=== PATIENT | female | born 1975 | race Caucasian/White ===

== ENCOUNTER 2023-09-28 01:51 | Emergency (ER) | payer OTHER, SELFPAY ==
[2023-09-28 01:58] VITALS: BP 121/77
[2023-09-28 02:45] VITALS: BMI 31.0
[2023-09-28 02:55] VITALS: BP 114/75
[2023-09-28 03:00] VITALS: BP 104/71
[2023-09-28 03:02] LABS: % Basophils 0.3 % (0-2); % Eosinophils 2.1 % (0-6); % Immature Granulocytes 0.5 % (0-0.5); % Lymphocytes 16.4 % (20.5-51.1); % Monocytes 6.9 % (1.7-9.3); % Neutrophils 73.8 % (42.2-75.2); Absolute Eosinophils 0.3 10^3/uL (0-0.7); Absolute Immature Granulocytes 0.1 10^3/uL (0-0.05); Absolute Monocytes 0.8 10^3/uL (0.1-0.6); Hematocrit 37.1 % (37.0-47.0); Hemoglobin 13.1 g/dL (12.0-16.0); Mean Corp Hgb Conc. 35.3 g/dL (33.0-37.0); Mean Corpuscular Hgb 30.4 pg (27.0-31.0); Mean Corpuscular Volume 86.1 fL (81.0-99.0); Mean Platelet Volume 9.4 fL (7.4-10.4); Nucleated Red Blood Cells % 0 %; Platelet Count 286 10^3/uL (130-400); Red Blood Cell Count 4.31 10^6/uL (4.20-5.40); Red Cell Dist. Width 12.5 % (11.5-14.5); White Blood Cell Count 12.2 10^3/uL (4.8-10.8)
[2023-09-28 03:16] LABS: ALT (SGPT) 15 U/L (0-35); AST (SGOT) 26 U/L (14-36); Albumin 4.3 g/dl (3.5-5.0); Alkaline Phosphatase 126 U/L (38-126); Blood Urea Nitrogen 19 mg/dl (7-17); Calcium 9.7 mg/dl (8.4-10.2); Carbon Dioxide 26 mmol/L (22-30); Chloride 103 mmol/L (98-107); Estimated Creatinine Clearance 89 ml/min; Glucose 114 mg/dl (70-99); Lipase 146 U/L (23-300); Potassium 4.7 mmol/L (3.5-5.1); Sodium 135 mmol/L (135-145); Total Bilirubin 0.8 mg/dl (0.2-1.3); Total Protein 7.4 g/dl (6.3-8.2); eGFR > 60.00
[2023-09-28 03:28] LABS: Troponin I < 0.012 ng/ml
--- NOTE | 2023-09-28 03:53 | ED.GENMED ---
History of Present Illness
General
Chief Complaint: Chest Pain
Source: patient
Exam Limitations: none
Time Seen by Provider: 09/28/23 02:50
Nursing documentation reviewed up to this point in time: agreed with
Travel History
Have you had any contact with someone who has COVID-19?: No
Do you have any symptoms of coronavirus? Fever > 100 degrees, chills, cough, shortness of breath, sore throat, loss of taste or smell, muscle aches, or headache?: No
History of Present Illness
History of Present Illness:
This is a 48-year-old woman who has history of SVT maintained on beta-maricruz who complains of epigastric pain that began tonight while lying in bed. Epigastric pain waxes and wanes, moderate in nature radiating to her lower substernal chest as
well as radiating to her back. She states epigastric pain and chest pain feels similar to 'heartburn' but admits that she rarely suffers with heartburn. She denies coughing or shortness of breath, denies nausea nor vomiting, denies dizziness nor
lightheadedness, denies diaphoresis. She has not taken anything for discomfort.
Symptoms have improved but have not completely resolved.
Patient ate scallops for dinner.
Epigastric and chest pain began while lying supine but did not wake her from sleep.
She denies risk of , last menstrual period normal and on time 3 and half weeks ago.
Other than beta-maricruz her only other daily medication is sertraline.
Past History
Past History
ED Past Medical History: Arrthythmia ( SVT) and Psychiatric; Negative HTN or Hypercholesterolemia
ED Past Surgical History: None
Social History
Tobacco: Non-smoker
Alcohol: Occasional
Drug: None
Personal:
Living: with family
Employment: Employed
Family History
Family History: Hypertension
Phy Exam
Physical Exam
Physical Exam:
GENERAL: 48-year-old woman appears her stated age, bright and alert, pleasant, appears in no acute distress.
EYE: anicteric
NECK: Supple, nontender, no meningismus, no significant adenopathy.
ENT: oral mucosa is moist. No rhinorrhea.
CARDIAC: Regular rate and rhythm. no murmur.
LUNGS: Clear breath sounds bilaterally, no acute respiratory distress, no wheezes/rales/rhonchi
ABDOMEN: Soft, nondistended, mild tenderness epigastric region, no r/g, no cvat. normoactive BS.
NEUROLOGICAL: Alert and oriented x3, no focal neuro deficits.
SKIN: Warm and dry, normal color, skin intact. No rash.
MUSCULOSKELETAL: No C/C/E. peripheral pulses are full and equal b/l. No palpable tenderness.
PSYCH: Normal and appropriate interaction.
Scores
Heart Score for Chest Pain Patients
STEMI patient?: No
History: Slightly or Non-Suspicious
ECG: Normal
Age: >45 - <65 years
Risk Factors: No Risk Factors
Troponin: </= Normal Limit
Heart Score for Chest Pain Patients: 1
Heart Score Risk: 2.5% MACE over next 6 weeks
Course
Orders/Labs/Results
Orders:
Orders
09/28/23 01:51
Electrocardiogram (*1) Urgent
Reason for Study: Chest Pain
EKG- Treatment ONCE
09/28/23 02:53
Complete Blood Count/With Diff Urgent
Comprehensive Metabolic Panel Urgent
Lipase Urgent
Troponin I Urgent
09/28/23 03:35
US Abdomen Complete/Upper Urgent
Comment:
Reason For Exam: acute upper abd pain
09/28/23 04:48
Pantoprazole [Protonix IV] 40 mg IV NOW STA
09/28/23 04:50
Mag Hydrox/Al Hydrox/Simeth [Maalox] 30 ml Phenobarb/Hyoscy/Atropine/Scop [] 10 ml Viscous Lidocaine 2% [Xylocaine Viscous Cup] 10 ml PO NOW
09/28/23 04:52
Mag Hydrox/Al Hydrox/Simeth [Maalox] 30 ml .ROUTE .STK-MED ONE
Phenobarb/Hyoscy/Atropine/Scop [] 10 ml .ROUTE .STK-MED ONE
09/28/23 04:53
Viscous Lidocaine 2% [Xylocaine Viscous Cup] 15 ml .ROUTE .STK-MED ONE
Abnormal Lab Results
09/28/23
02:53
WBC 12.2 H 10^3/uL
(4.8-10.8)
Abs Immat Gran (auto) 0.1 H 10^3/uL
(0-0.05)
Absolute Neuts (auto) 9.0 H 10^3/uL
(1.4-6.5)
Absolute Monos (auto) 0.8 H 10^3/uL
(0.1-0.6)
Lymphocytes % 16.4 L %
(20.5-51.1)
BUN 19 H mg/dl
(7-17)
Glucose 114 H mg/dl
(70-99)
09/28/23 02:53
09/28/23 02:53
Vital Signs
Initial and Last Documented VS:
Initial Vital Signs
Temp Pulse Resp BP Pulse Ox
98.5 F 71 16 121/77 100
09/28/23 01:58 09/28/23 01:58 09/28/23 01:58 09/28/23 01:58 09/28/23 01:58
Last Documented Vital Signs
Temp Pulse Resp BP Pulse Ox
98.5 F 67 16 104/71 100
09/28/23 01:58 09/28/23 03:45 09/28/23 01:58 09/28/23 03:00 09/28/23 01:58
MDM/Problems Addressed
Differential Diagnosis Includes:
Concern for acute gastritis/GERD, other consideration is acute pancreatitis, biliary colic/cholecystitis. ACS is less likely.
Patient has no risk factors for aortic dissection nor PE.
Overall appears comfortable. Exam remarkable for mild to moderate epigastric tenderness to palpation.
EKG shows normal sinus rhythm, normal axis, normal intervals, flipped T waves in 3 and V3 otherwise unremarkable. Similar flipped T waves noted on prior EKG August 2021 save her heart rate has improved from 140 to now 70.
Will check labs including LFTs, lipase, troponin.
Will plan for abdominal ultrasound to assess for cholelithiasis.
*Pulse Oximetry
Patient hypoxic: no
*EKG
Interpreted by ED Provider?: Yes
Comparison EKG: changes noted (Heart rate has decreased from 140 to now 70 compared to previous EKG August 2021)
Rate: normal
Rhythm: sinus
Lutcher: normal axis
Interval: normal interval
QRS Pattern: normal QRS
Ischemia: T-wave inversion (Mild T wave inversion in lead III and V3.)
*Seamless Tube Mill Operator Interpretation
Rate: normal
Interpretation: normal
Rhythm: sinus
*Critical Care Note
Total Time (30-74mins, 75-104mins- exclusive of procedures): Not Applicable
Update Note
Update Note:
09/28/2023 0451 AM
Labs are unremarkable save for minimally elevated white blood cell count of 12.2.
Troponin is negative. Chemistry/LFTs are unremarkable.
Abdominal ultrasound is unremarkable.
Overall patient appears comfortable, she continues with very mild intermittent lower substernal chest discomfort, epigastric discomfort that I suspect is gastritis/GERD in nature and thus we will trial a GI cocktail and IV Protonix.
09/28/2023 0532 AM
Patient feeling improved after GI cocktail. Eager to be discharged to home.
Recommend she start once daily [id number] Prilosec 20 mg for at least the next 5 to 7 days.
Avoid heavy meals, avoid spicy, fried foods, caffeinated beverages, alcoholic beverages.
Prompt follow-up with primary care physician for recheck.
Return precautions discussed.
ED Attending Note
-
Portions of this chart may have been created with voice recognition software.� Occasional wrong word or��sound alike� substitutions may have occurred due to the inherent limitations of voice recognition software.
Discharge Plan
Departure
Patient Disposition: Home (Routine Discharge)
Date of Disposition: 09/28/23
Time of Disposition: 05:30
Patient with high blood pressure during this ER visit?: No
Condition: Good
Discharge Problem:
Acute acid reflux
Instructions: Acid Reflux and GERD in Adults (DC)
Prescriptions:
No Action
albuterol sulfate 18 GM HFA aerosol inhaler
8.5 gm inhalation Q4HPRN PRN (Reason: cough/sob)
fluticasone propionate [Flovent HFA] 1 PUFF HFA aerosol inhaler
2 puff inhalation R BID
Patient Comments:
Patient unsure of dose.
lactobacillus bifidus [[id number]] 1 CAP capsule
1 cap PO DAILY Qty: 30 0RF
pantoprazole 40 MG tablet,delayed release (DR/EC)
40 mg PO DAILY Qty: 15 0RF
ondansetron HCl 4 MG tablet
4 mg PO [id number] PRN (Reason: before antibiotics if nausea) Qty: 28 0RF
amoxicillin-pot clavulanate 1 TABLET tablet
1 tab PO Q12 Qty: 28 0RF
Referrals:
NONE,* [Active] - Call in 1-3 days for appt
Interventions
Interventions:
*Risk Screen - Suicide Last Done: 09/28/23 01:58
*General Assessment Last Done: 09/28/23 01:58
*Neglect/Abuse Screening Last Done: 09/28/23 01:58
ED- Fall Risk Assessment Last Done: 09/28/23 02:45
ED- Cardiac Assessment Last Done: 09/28/23 02:45
[2023-09-28] MEDS: MAALOX 50 PO (04:54)
[2023-09-28] MEDS: PROTONIX IV 40 MG IV (05:01)
== END 2023-09-28 05:45 | disposition home or self-care (01) ==
LOC: EMR 01:51
PROVIDERS: EMERGENCY PHYSICIAN Emergency Medicine; FAMILY PHYSICIAN Family Medicine
DX: K21.9 Gastro-esophageal reflux disease without esophagitis (principal)
CPT/HCPCS: 99285; 96374; 76700; 80053; 83690; 84484; 85025; 93005

== ENCOUNTER 2023-12-26 01:10 | Emergency (ER) | payer OTHER, SELFPAY ==
[2023-12-26 01:10] VITALS: BMI 31.3
[2023-12-26 01:13] VITALS: BP 112/74
--- NOTE | 2023-12-26 02:20 | ED.GENMED ---
History of Present Illness
<ONEIL Townsend - Last Filed: 12/26/23 06:31>
General
Chief Complaint: Eye Problems
Source: patient
Exam Limitations: none
Time Seen by Provider: 12/26/23 01:56
Travel History
Have you had any contact with someone who has COVID-19?: No
Do you have any symptoms of coronavirus? Fever > 100 degrees, chills, cough, shortness of breath, sore throat, loss of taste or smell, muscle aches, or headache?: No
History of Present Illness
History of Present Illness:
This is a 48 YO F with a PMH of anxiety, depression, and sinus tachycardia presenting here today for left eye discomfort/swelling x 3 days. Pt reports slight pain in the upper eyelid for the past three days and complains of a foreign body sensation.
Pt complains of blurry vision superiorly in the left eye and in her left visual field. She states this has never happened before. Denies burning, flashes, and floaters. Hx of ocular surgery b/l in 2018, not cataract surgery, but similar. Pt has used
rewetting drops today with some relief.
Denies smoking, alcohol, and drug use.
Past History
<ONEIL Townsend - Last Filed: 12/26/23 06:31>
Past History
ED Past Medical History: Arrthythmia ( SVT) and Psychiatric; Negative HTN or Hypercholesterolemia
ED Past Surgical History: None
Social History
Tobacco: Non-smoker
Alcohol: Occasional
Drug: None
Personal:
Living: with family
Employment: Employed
Family History
Family History: Hypertension
Review of Systems
<ONEIL Townsend - Last Filed: 12/26/23 06:31>
Review of Systems
Constitutional: Reports no symptoms
Respiratory: Reports no symptoms
Cardiac: Reports no symptoms
ABD/GI: Reports no symptoms
: Reports no symptoms
Musculoskeletal: Reports no symptoms
Skin: Reports no symptoms
Neurological: Reports no symptoms
Endocrine: Reports no symptoms
Hematologic/Lymphatic: Reports no symptoms
Psychiatric: Reports depression and anxiety
Phy Exam
<ONEIL Townsend - Last Filed: 12/26/23 06:31>
Physical Exam
Physical Exam:
Visible left eye swelling, (-) corneal abrasion seen after staining
Course
<Dominique Joyner [facility] - Last Filed: 12/26/23 06:31>
Orders/Labs/Results
Orders:
Orders
12/26/23 02:33
CT Orbits With Iv Contrast Urgent
Comment:
Reason For Exam: left eye swelling
12/26/23 02:34
Test Result ONCE
12/26/23 02:54
Complete Blood Count/With Diff Urgent
Comprehensive Metabolic Panel Urgent
HCG, Serum Qualitative Screen Urgent
12/26/23 06:20
Erythromycin (Ilotycin) [Erythromycin 0.5% Ophthalmic Ointment] See Dose Instructions OPHTH NOW STA
Abnormal Lab Results
12/26/23
02:54
WBC 12.4 H 10^3/uL
(4.8-10.8)
MCH 31.8 H pg
(27.0-31.0)
Absolute Neuts (auto) 9.2 H 10^3/uL
(1.4-6.5)
Absolute Monos (auto) 0.8 H 10^3/uL
(0.1-0.6)
Lymphocytes % 17.1 L %
(20.5-51.1)
BUN 23 H mg/dl
(7-17)
Glucose 110 H mg/dl
(70-99)
Alkaline Phosphatase 170 H U/L
(38-126)
12/26/23 02:54
12/26/23 02:54
Vital Signs
Initial and Last Documented VS:
Initial Vital Signs
Temp Pulse Resp BP Pulse Ox
98.6 F 69 18 112/74 98
12/26/23 01:13 12/26/23 01:13 12/26/23 01:13 12/26/23 01:13 12/26/23 01:13
Last Documented Vital Signs
Temp Pulse Resp BP Pulse Ox
98.6 F 69 18 112/74 98
12/26/23 01:13 12/26/23 01:13 12/26/23 01:13 12/26/23 01:13 12/26/23 01:13
<Rafa Huddleston, DO - Last Filed: 12/26/23 05:32>
Orders/Labs/Results
Orders:
Orders
12/26/23 02:33
CT Orbits With Iv Contrast Urgent
Comment:
Reason For Exam: left eye swelling
12/26/23 02:34
Test Result ONCE
12/26/23 02:54
Complete Blood Count/With Diff Urgent
Comprehensive Metabolic Panel Urgent
HCG, Serum Qualitative Screen Urgent
12/26/23 06:20
Erythromycin (Ilotycin) [Erythromycin 0.5% Ophthalmic Ointment] See Dose Instructions OPHTH NOW STA
Abnormal Lab Results
12/26/23
02:54
WBC 12.4 H 10^3/uL
(4.8-10.8)
MCH 31.8 H pg
(27.0-31.0)
Absolute Neuts (auto) 9.2 H 10^3/uL
(1.4-6.5)
Absolute Monos (auto) 0.8 H 10^3/uL
(0.1-0.6)
Lymphocytes % 17.1 L %
(20.5-51.1)
BUN 23 H mg/dl
(7-17)
Glucose 110 H mg/dl
(70-99)
Alkaline Phosphatase 170 H U/L
(38-126)
12/26/23 02:54
12/26/23 02:54
Vital Signs
Initial and Last Documented VS:
Initial Vital Signs
Temp Pulse Resp BP Pulse Ox
98.6 F 69 18 112/74 98
12/26/23 01:13 12/26/23 01:13 12/26/23 01:13 12/26/23 01:13 12/26/23 01:13
Last Documented Vital Signs
Temp Pulse Resp BP Pulse Ox
98.6 F 69 18 112/74 98
12/26/23 01:13 12/26/23 01:13 12/26/23 01:13 12/26/23 01:13 12/26/23 01:13
<ONEIL Townsend - Last Filed: 12/26/23 06:31>
MDM/Problems Addressed
Differential Diagnosis Includes:
Blepharitis, orbital cellulitis, corneal abrasion, corneal ulcer
MDM/Problems Addressed:
Left eye discomfort x 3 days
<ONEIL Townsend - Last Filed: 12/26/23 06:31>
*Critical Care Note
Total Time (30-74mins, 75-104mins- exclusive of procedures): Not Applicable
<Rafa Huddleston DO - Last Filed: 12/26/23 05:32>
Update Note
Update Note:
CT orbits with IV contrast
IMPRESSION:
No abscess or orbital cellulitis. Close are intact. Paranasal sinuses and mastoid air cells clear.
Finalized at 5:03 AM EST
ED Attending Note
<ONEIL Townsedn - Last Filed: 12/26/23 06:31>
-
Portions of this chart may have been created with voice recognition software.� Occasional wrong word or��sound alike� substitutions may have occurred due to the inherent limitations of voice recognition software.
<Rafa Huddleston DO - Last Filed: 12/26/23 05:32>
ED Attending Note
Patient seen and examined by attending physician: Yes
I performed the substantive portion of visit, reviewed & personally made and approve the management plan that is documented in note by myself or GARRETT.: Yes
ED Attending Note:
Pleasant 48-year-old female presents with left eye discomfort that is been present for the last 3 days. She states that she has had increased pain and swollen eyelids. She feels that something is in her upper eyelid. Denies fever, chills, nausea
or vomiting. Patient was seen in conjunction with the PA student. I have reviewed and agree with the history and treatment plan presented. On my independent physical exam, patient is awake, alert, and oriented x3. Eyelid everted. No foreign
body. Fluorescein dye showed no evidence of corneal abrasion. There are some swelling to the left upper eyelid. Plan is to CT scan of the orbits.
Discharge Plan
Departure
Patient Disposition: Home (Routine Discharge)
Date of Disposition: 12/26/23
Time of Disposition: 05:30
Patient with high blood pressure during this ER visit?: No
Condition: Good
Discharge Problem:
Acute left eye pain, Pain and swelling of eyelid of left eye
Instructions: Blepharitis
Prescriptions:
New
erythromycin 5 mg/gram (0.5 %) ointment
1 applic ophthalmic (eye) Q8H PRN (Reason: eye pain, swekking) Qty: 50 0RF
No Action
albuterol sulfate 18 GM HFA aerosol inhaler
8.5 gm inhalation Q4HPRN PRN (Reason: cough/sob)
fluticasone propionate [Flovent HFA] 1 PUFF HFA aerosol inhaler
2 puff inhalation R BID
Patient Comments:
Patient unsure of dose.
lactobacillus bifidus [[id number]] 1 CAP capsule
1 cap PO DAILY Qty: 30 0RF
pantoprazole 40 MG tablet,delayed release (DR/EC)
40 mg PO DAILY Qty: 15 0RF
ondansetron HCl 4 MG tablet
4 mg PO [id number] PRN (Reason: before antibiotics if nausea) Qty: 28 0RF
amoxicillin-pot clavulanate 1 TABLET tablet
1 tab PO Q12 Qty: 28 0RF
Referrals:
Theo Jensen Jr., DO [Family Provider] -
Randy Navarrete MD [Active] - Next open appointment
Activity Restrictions/Additional Instructions:
It was a pleasure meeting you and taking part in your care. We hope for your continued healing and wellness.
Please read discharge instructions in their entirety. However, they are for general education and may not describe your exact diagnosis at discharge. Information on your ER visit and medical conditions were discussed with you along with appropriate
follow up information...
If indicated, please take your medications as instructed and indicated on discharge paperwork.
Please schedule a follow up appointment as directed. Call to schedule an appointment
Please return to the emergency department with ANY change in, persisting, or worsening of symptoms. If any of your symptoms do not improve, or persist, or become more severe within 6-12 hours, please return to the emergency department for further
care.
Please return to the emergency department if you develop a headache, neck pain/stiffness, fever greater than 100.4F, chest pain, shortness of breath, persistent nausea, vomiting, slurred speech, difficulty walking, numbness/tingling, weakness, signs
of infection or any other symptoms that are worrisome to you.
If you have any questions or concerns please do not hesitate to call the Hospital at or E-mail me directly at [email or web address]
Interventions
Interventions:
*Risk Screen - Suicide Last Done: 12/26/23 01:13
*General Assessment Last Done: 12/26/23 01:13
*Neglect/Abuse Screening Last Done: 12/26/23 01:13
ED- Fall Risk Assessment Last Done: 12/26/23 01:13
*ED COVID-19 Vaccine History Last Done: 12/26/23 01:13
Discharge Date and Time
Print Language: KOSOVAN
[2023-12-26 03:13] LABS: % Basophils 0.4 % (0-2); % Eosinophils 1.8 % (0-6); % Immature Granulocytes 0.2 % (0-0.5); % Lymphocytes 17.1 % (20.5-51.1); % Monocytes 6.6 % (1.7-9.3); % Neutrophils 73.9 % (42.2-75.2); Absolute Basophils 0.1 10^3/uL (0-0.2); Absolute Eosinophils 0.2 10^3/uL (0-0.7); Absolute Lymphocytes 2.1 10^3/uL (1.2-3.4); Absolute Monocytes 0.8 10^3/uL (0.1-0.6); Absolute Neutrophils 9.2 10^3/uL (1.4-6.5); Hematocrit 41.1 % (37.0-47.0); Hemoglobin 14.3 g/dL (12.0-16.0); Mean Corp Hgb Conc. 34.8 g/dL (33.0-37.0); Mean Corpuscular Hgb 31.8 pg (27.0-31.0); Mean Corpuscular Volume 91.5 fL (81.0-99.0); Mean Platelet Volume 10.2 fL (7.4-10.4); Nucleated Red Blood Cells % 0 %; Platelet Count 296 10^3/uL (130-400); Red Blood Cell Count 4.49 10^6/uL (4.20-5.40); Red Cell Dist. Width 12.3 % (11.5-14.5); White Blood Cell Count 12.4 10^3/uL (4.8-10.8)
[2023-12-26 03:48] LABS: HCG, Serum Qualitative Screen Negative
[2023-12-26 03:56] LABS: ALT (SGPT) 13 U/L (0-35); AST (SGOT) 22 U/L (14-36); Albumin 4.6 g/dl (3.5-5.0); Alkaline Phosphatase 170 U/L (38-126); Blood Urea Nitrogen 23 mg/dl (7-17); Calcium 9.9 mg/dl (8.4-10.2); Carbon Dioxide 26 mmol/L (22-30); Chloride 101 mmol/L (98-107); Estimated Creatinine Clearance 63 ml/min; Glucose 110 mg/dl (70-99); Sodium 139 mmol/L (135-145); Total Bilirubin 0.7 mg/dl (0.2-1.3); Total Protein 7.6 g/dl (6.3-8.2); eGFR > 60.00
== END 2023-12-26 06:42 | disposition home or self-care (01) ==
LOC: EMR 01:10
PROVIDERS: EMERGENCY PHYSICIAN Student in an Organized Health Care Education/Training Program; FAMILY PHYSICIAN Family Medicine
DX: H57.12 Ocular pain, left eye (principal); H02.844 Edema of left upper eyelid
CPT/HCPCS: 99285; 70481; 80053; 84703; 85025; Q9967

== ENCOUNTER → 2024-01-12 14:03 | Outpatient (REF) | payer OTHER, SELFPAY | LOC: RCS 14:03 | PROVIDERS: ATTENDING PHYSICIAN Internal Medicine Cardiovascular Disease; FAMILY PHYSICIAN Family Medicine | DX: R07.2 Precordial pain (principal); I47.11 Inappropriate sinus tachycardia, so stated; R06.09 Other forms of dyspnea | CPT/HCPCS: 93306 ==

== ENCOUNTER 2024-03-15 16:35 | Emergency (ER) | payer OTHER, SELFPAY ==
[2024-03-15 16:39] VITALS: BP 123/92
--- NOTE | 2024-03-15 16:44 | ED.PDOC.TRB ---
ED Provider Triage
-
Patient seen by provider in Triage?: Seen in Triage
49 year old female with midabdominal pain and vomiting yesterday. Had blood in vomit yesterday. This started after eating shrimp. NO vomiting since yesterday. No bloody stools. No thinners or alcohol use. Labs ordered. Sent back to [facility].
[2024-03-15 17:21] LABS: % Basophils 0.5 % (0-2); % Eosinophils 1.9 % (0-6); % Immature Granulocytes 0.4 % (0-0.5); % Lymphocytes 24.8 % (20.5-51.1); % Monocytes 6.8 % (1.7-9.3); % Neutrophils 65.6 % (42.2-75.2); Absolute Eosinophils 0.2 10^3/uL (0-0.7); Absolute Lymphocytes 2.1 10^3/uL (1.2-3.4); Absolute Monocytes 0.6 10^3/uL (0.1-0.6); Absolute Neutrophils 5.4 10^3/uL (1.4-6.5); Hematocrit 38.2 % (37.0-47.0); Hemoglobin 13.5 g/dL (12.0-16.0); Mean Corp Hgb Conc. 35.3 g/dL (33.0-37.0); Mean Corpuscular Hgb 30.4 pg (27.0-31.0); Mean Platelet Volume 10.3 fL (7.4-10.4); Nucleated Red Blood Cells % 0 %; Platelet Count 299 10^3/uL (130-400); Red Blood Cell Count 4.44 10^6/uL (4.20-5.40); Red Cell Dist. Width 11.9 % (11.5-14.5); White Blood Cell Count 8.3 10^3/uL (4.8-10.8)
[2024-03-15 17:45] LABS: Blood Urea Nitrogen 14 mg/dl (7-17); Calcium 9.5 mg/dl (8.4-10.2); Carbon Dioxide 20 mmol/L (22-30); Chloride 106 mmol/L (98-107); Glucose 82 mg/dl (70-99); Lipase 79 U/L (23-300); Sodium 135 mmol/L (135-145); eGFR > 60.00
--- NOTE | 2024-03-15 18:06 | ED.GENMED ---
History of Present Illness
General
Chief Complaint: Abdominal Symptoms
Source: patient
Exam Limitations: none
Time Seen by Provider: 03/15/24 18:04
Nursing documentation reviewed up to this point in time: agreed with
History of Present Illness
History of Present Illness:
Patient is a 49 yr old female presents to the ER for evaluation. Patient reports yesterday she had 3 episodes at 1 time vomiting blood. 2 episodes were dark red blood and she had additional episode of light red blood/ mixed with dark red blood.
She had some abdominal fullness. She was in [place] at the time and did not want to go to the hospital there. Today she had intermittent nausea but has not vomited and has had small amount to eat and drink. Denies any dark or black stools.
Denies any lightheaded dizziness weakness. Denies any abdominal pain presently.
She does admit that she started Zepbound by a weight loss/list 3 weeks ago.
She only is a social alcohol drinker. She does not have a diagnosed reflux.
Past History
Past History
ED Past Medical History: Arrthythmia ( SVT) and Psychiatric; Negative HTN or Hypercholesterolemia
ED Past Surgical History: None
Social History
Tobacco: Non-smoker
Alcohol: Occasional
Drug: None
Personal:
Living: with family
Employment: Employed
Family History
Family History: Hypertension
Review of Systems
Review of Systems
Allergies reviewed?: Yes
All Other Systems: ROS reviewed and negative except as documented in HPI and ROS
Constitutional: Reports no symptoms; Denies fever, fatigue or chills
Respiratory: Reports no symptoms
Cardiac: Reports no symptoms
ABD/GI: Reports nausea, vomiting and other (vomited blood yesterday denies today no vomiting ; denies pain had mild fullness yesterday ); Denies bloody stools or black stools
: Reports no symptoms
Musculoskeletal: Reports no symptoms; Denies back pain
Skin: Reports no symptoms
Neurological: Reports no symptoms
Psychiatric: Reports no symptoms
Phy Exam
General Physical Exam
General Presentation: well appearing
General age: appears stated age
General Skin: warm and dry
General Habitus: normal
General Mental: alert
General Hydration: appears well hydrated
Cardiovascular Exam
Cardiovascular Exam: regular rate/rhythm, no murmur and normal peripheral pulses
Pulmonary Exam
Pulmonary Exam: lungs clear and no respiratory distress
Gastrointestinal Exam
Gastrointestinal Exam: normal bowel sounds, non tender and soft
Neurological Exam
Neurological Exam: alert and oriented x3
[place] Coma Scale
Eye Opening: Spontaneous
Verbal Response: Oriented
Motor Response: Obeys Commands
GCS Total Score: 15
Musculoskeletal Exam
Musculoskeletal Exam: full ROM
Skin Exam
Skin Exam: normal color and warm/dry
Psychiatric Exam
Psychiatric Exam: normal mood/affect
Course
Orders/Labs/Results
Orders:
Orders
03/15/24 17:12
Complete Blood Count/With Diff Urgent
03/15/24 17:13
Basic Metabolic Panel Urgent
Lipase Urgent
03/15/24 19:56
LFT [Uiaiy-Dayj-Yhchvgy] Urgent
03/15/24 20:04
Famotidine [Pepcid] 20 mg IV NOW STA
Abnormal Lab Results
03/15/24 03/15/24
17:13 19:56
Carbon Dioxide 20 L mmol/L
(22-30)
Total Bilirubin 1.4 H mg/dl
(0.2-1.3)
03/15/24 17:12
03/15/24 17:13
Vital Signs
Initial and Last Documented VS:
Initial Vital Signs
Temp Pulse Resp BP Pulse Ox
98.3 F 94 20 123/92 99
03/15/24 16:39 03/15/24 16:39 03/15/24 16:39 03/15/24 16:39 03/15/24 16:39
Last Documented Vital Signs
Temp Pulse Resp BP Pulse Ox
98.3 F 94 20 123/92 99
03/15/24 16:39 03/15/24 16:39 03/15/24 16:39 03/15/24 16:39 03/15/24 16:39
Diamond Sander consulted with Physician
Diamond Sander consulted with physician?: Yes
Name of Physician Consulted: Dr Eli
MDM/Problems Addressed
Differential Diagnosis Includes:
Not limited to ulcer, gastritis, anemia
MDM/Problems Addressed:
Patient is a 49-year-old female who presented to the ER after vomiting blood yesterday. Patient reports she had 3 separate episodes of vomiting at 1 time and reported dark blood 2 times and scattered dark mixed with pink-tinged blood the third
time. She felt a little upper abdominal fullness denies any vomiting today minimally nauseous. On exam she presents well-appearing in no acute distress abdomen soft nontender. Her hemoglobin is stable at 13.5 her lipase is normal her LFTs
evaluated bilirubin minimally elevated 1.4 all other LFTs normal she recently started Zepbound 3 weeks ago. She is no acute distress and looks well again no further episodes here and vital signs stable. Case reviewed with GI DR Nguyen. She
likely needs outpatient GI follow-up and endoscopy. Will hold off on any imaging as discussed with GI. As discussed with GI will start on PPI twice daily and care and have patient hold Zepbound. GI will attempt to get patient in as soon as
possible. I will notify GI hotline.
*Pulse Oximetry
Patient hypoxic: no
*Critical Care Note
Total Time (30-74mins, 75-104mins- exclusive of procedures): Not Applicable
ED Attending Note
-
Portions of this chart may have been created with voice recognition software.� Occasional wrong word or��sound alike� substitutions may have occurred due to the inherent limitations of voice recognition software.
Discharge Plan
Departure
Patient Disposition: Home (Routine Discharge)
Date of Disposition: 03/15/24
Time of Disposition: 21:14
Patient with high blood pressure during this ER visit?: Yes
Condition: Fair
Covid-19: Not Applicable
Discharge Problem:
Vomiting of blood
Instructions: [place] Diet, Nausea and Vomiting, Adult (DC)
Prescriptions:
New
pantoprazole [Protonix] 20 mg tablet,delayed release (DR/EC)
20 mg PO BID Qty: 30 0RF
sucralfate [Carafate] 100 mg/mL suspension
10 ml PO ACHS Qty: 1000 0RF
No Action
albuterol sulfate 18 GM HFA aerosol inhaler
8.5 gm inhalation Q4HPRN PRN (Reason: cough/sob)
fluticasone propionate [Flovent HFA] 1 PUFF HFA aerosol inhaler
2 puff inhalation R BID
Patient Comments:
Patient unsure of dose.
lactobacillus bifidus [[id number]] 1 CAP capsule
1 cap PO DAILY Qty: 30 0RF
pantoprazole 40 MG tablet,delayed release (DR/EC)
40 mg PO DAILY Qty: 15 0RF
ondansetron HCl 4 MG tablet
4 mg PO [id number] PRN (Reason: before antibiotics if nausea) Qty: 28 0RF
amoxicillin-pot clavulanate 1 TABLET tablet
1 tab PO Q12 Qty: 28 0RF
erythromycin 5 mg/gram (0.5 %) ointment
1 applic ophthalmic (eye) Q8H PRN (Reason: eye pain, swekking) Qty: 50 0RF
Referrals:
Maddy Nguyen MD [Active] -
UNKNOWN - PT DOES,NOT KNOW [Family Provider] -
Activity Restrictions/Additional Instructions:
As discussed avoid all caffeine, chocolate.
[place] diet avoid spicy foods acidic foods and fatty foods
Stop Zepbound
Prescriptions for medications which we discussed were sent to pharmacy
Follow-up with GI. You should receive a call from the front office medical assistant of GI to schedule an appointment however if you do not please call them to get appt as soon as possible. Return however to the ER if any worsening of symptoms including if you
vomit blood again, have abdominal pain nausea vomiting fever chills.
Interventions
Interventions:
*Risk Screen - Suicide Last Done: 03/15/24 16:39
*General Assessment Last Done: 03/15/24 16:39
*Neglect/Abuse Screening Last Done: 03/15/24 16:39
Discharge Date and Time
Print Language: IRISH
[2024-03-15 20:26] LABS: ALT (SGPT) 12 U/L (0-35); AST (SGOT) 21 U/L (14-36); Albumin 4.4 g/dl (3.5-5.0); Alkaline Phosphatase 73 U/L (38-126); Direct Bilirubin 0.1 mg/dl (0.0-0.4); Total Bilirubin 1.4 mg/dl (0.2-1.3)
[2024-03-15] MEDS: PEPCID 20 MG IV (20:53)
[2024-03-15 21:28] VITALS: BP 124/66
[2024-03-15 21:29] VITALS: BP 124/66
== END 2024-03-15 21:36 | disposition home or self-care (01) ==
LOC: EMR 16:35
PROVIDERS: Nurse Practitioner; Physician Assistant; EMERGENCY PHYSICIAN Emergency Medicine
DX: K92.0 Hematemesis (principal); Z82.49 Family history of ischemic heart disease and other diseases of the circulatory system
CPT/HCPCS: 99283; 96374; 80048; 80076; 83690; 85025

== ENCOUNTER → 2024-03-19 06:28 | Day surgery (SDC) | payer OTHER, SELFPAY | LOC: GI 06:28 | PROVIDERS: ATTENDING PHYSICIAN Internal Medicine Gastroenterology | DX: R12 Heartburn (principal); K92.0 Hematemesis; K31.7 Polyp of stomach and duodenum; K31.89 Other diseases of stomach and duodenum | CPT/HCPCS: 43239; 88305; 88342 ==

== ENCOUNTER 2024-09-07 22:10 | Emergency (ER) | payer OTHER, SELFPAY ==
[2024-09-07 22:14] VITALS: BP 125/88
--- NOTE | 2024-09-07 22:38 | ED.GENMED ---
History of Present Illness
General
Chief Complaint: Anal/Rectal Problem
Source: patient
Time Seen by Provider: 09/07/24 22:34
History of Present Illness
History of Present Illness:
49-year-old female presenting to the emergency department for evaluation of suspected hemorrhoid stating she is going for a colonoscopy tomorrow, started her bowel prep this evening and then noticed some discomfort and a bulging abnormality in her
rectum. Patient states the area is mildly uncomfortable. Denies any fevers, abdominal pain or any other concerns.
Past History
Past History
ED Past Medical History: Arrthythmia ( SVT) and Psychiatric; Negative HTN or Hypercholesterolemia
ED Past Surgical History: None
Social History
Tobacco: Non-smoker
Alcohol: Occasional
Drug: None
Personal:
Living: with family
Employment: Employed
Family History
Family History: Hypertension
Review of Systems
Review of Systems
All Other Systems: ROS reviewed and negative except as documented in HPI and ROS
Phy Exam
Physical Exam
Physical Exam:
GENERAL: Alert , in no apparent distress
EYE: conjunctiva clear
Head: Normocephalic atraumatic
NECK: Supple,
ENT: mmm.
LUNGS: no acute respiratory distress
RECTAL EXAM: Chaperoned by ED LORRIE Angulo, patient has a moderate external thrombosed tender hemorrhoid. No active bleeding
NEUROLOGICAL: Alert and oriented
SKIN: Warm and dry, skin intact.
MUSCULOSKELETAL: well perfused.
PSYCH: Normal and appropriate interaction.
Scores
Heart Failure Risk
Heart Failure Risk Score: Not Applicable
Heart Score for Chest Pain Patients
STEMI patient?: Not applicable
Withdrawal Assessment of Alcohol
Withdrawal Assessment Completed?: Not applicable
Course
Vital Signs
Initial and Last Documented VS:
Initial Vital Signs
Temp Pulse Resp BP Pulse Ox
98.1 F 99 16 125/88 98
09/07/24 22:14 09/07/24 22:14 09/07/24 22:14 09/07/24 22:14 09/07/24 22:14
Last Documented Vital Signs
Temp Pulse Resp BP Pulse Ox
98.1 F 99 16 125/88 98
09/07/24 22:14 09/07/24 22:14 09/07/24 22:14 09/07/24 22:14 09/07/24 22:14
MDM/Problems Addressed
Differential Diagnosis Includes:
Hemorrhoid, rectal prolapse, malignancy
MDM/Problems Addressed:
49-year-old female presenting to the ER for minor rectal discomfort that she noticed this evening while prepping for her colonoscopy tomorrow. Colonoscopy is routine screening. Exam reveals a moderate-sized external thrombosed hemorrhoid at about
the 2 o'clock position. Patient was advised on symptomatic relief with sitz bath's, topical hydrocortisone suppository as needed. Advised that if symptoms persist she may need follow-up with general surgery or colorectal surgery. Patient
otherwise stable for discharge
*Pulse Oximetry
Patient hypoxic: no
*Critical Care Note
Total Time (30-74mins, 75-104mins- exclusive of procedures): Not Applicable
ED Attending Note
-
Portions of this chart may have been created with voice recognition software.� Occasional wrong word or��sound alike� substitutions may have occurred due to the inherent limitations of voice recognition software.
Discharge Plan
Departure
Patient Disposition: Home (Routine Discharge)
Date of Disposition: 09/07/24
Time of Disposition: 22:39
Patient with high blood pressure during this ER visit?: No
Discharge Problem:
Hemorrhoids, thrombosed
Instructions: Hemorrhoids (DC)
Prescriptions:
No Action
albuterol sulfate 18 GM HFA aerosol inhaler
8.5 gm inhalation Q4HPRN PRN (Reason: cough/sob)
fluticasone propionate [Flovent HFA] 1 PUFF HFA aerosol inhaler
2 puff inhalation R BID
Patient Comments:
Patient unsure of dose.
lactobacillus bifidus [Papjn-[id number]] 1 CAP capsule
1 cap PO DAILY Qty: 30 0RF
pantoprazole 40 MG tablet,delayed release (DR/EC)
40 mg PO DAILY Qty: 15 0RF
ondansetron HCl 4 MG tablet
4 mg PO [id number] PRN (Reason: before antibiotics if nausea) Qty: 28 0RF
amoxicillin-pot clavulanate 1 TABLET tablet
1 tab PO Q12 Qty: 28 0RF
erythromycin 5 mg/gram (0.5 %) ointment
1 applic ophthalmic (eye) Q8H PRN (Reason: eye pain, swekking) Qty: 50 0RF
pantoprazole [Protonix] 20 mg tablet,delayed release (DR/EC)
20 mg PO BID Qty: 30 0RF
sucralfate [Carafate] 100 mg/mL suspension
10 ml PO ACHS Qty: 1000 0RF
Referrals:
UNKNOWN - PT DOES,NOT KNOW [Family Provider] -
Interventions
Interventions:
*Risk Screen - Suicide Last Done: 09/07/24 22:40
*General Assessment Last Done: 09/07/24 22:14
*Neglect/Abuse Screening Last Done: 09/07/24 22:40
ED- Fall Risk Assessment Last Done: 09/07/24 22:40
*ED COVID-19 Vaccine History Last Done: 09/07/24 22:40
*Nursing Disposition Last Done: 09/07/24 22:41
ED-Skin Assessment Last Done: 09/07/24 22:40
Discharge Date and Time
Discharge Date/Time: 09/07/24 22:42
Print Language: SCOTTISH
== END 2024-09-07 22:42 | disposition home or self-care (01) ==
LOC: EMR 22:10
PROVIDERS: EMERGENCY PHYSICIAN Emergency Medicine
DX: K64.5 Perianal venous thrombosis (principal)
CPT/HCPCS: 99282

== ENCOUNTER 2024-09-08 06:29 | Day surgery (SDC) | payer OTHER, SELFPAY | END 2024-09-08 14:40 | disposition home or self-care (01) | LOC: GI 06:29 | PROVIDERS: ATTENDING PHYSICIAN Internal Medicine Gastroenterology | DX: R19.4 Change in bowel habit (principal); K64.8 Other hemorrhoids; K57.30 Diverticulosis of large intestine without perforation or abscess without bleeding | CPT/HCPCS: 45380; 88305 ==

== ENCOUNTER 2024-10-14 09:19 | Emergency (ER) | payer OTHER, SELFPAY ==
[2024-10-14 09:21] VITALS: BP 147/106
--- NOTE | 2024-10-14 09:49 | ED.SKININJ ---
HPI-Injury
General
Chief Complaint: Skin Problem
Source: patient
Exam Limitations: none
Time Seen by Provider: 10/14/24 09:33
Nursing documentation reviewed up to this point in time: agreed with
History of Present Illness-Injury
Initial Injury comments:
49 yo female w h/o hidradenitis suppurativa, presents with abscess right labia/inguinal area getting worse over past 3 days.
Had hysterectomy 09/23/24 and has been alternating Tylenol and Ibuprofen for pain and still had temp of 99.0. Denies chills, nausea. 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 2 days ago and given Bactroban she has been applying.
Also some right lower back pain past few days. Denies urgency, frequency or burning w urination.
Past History
Past History
ED Past Medical History: Arrthythmia ( SVT), Psychiatric and Other (Hidradenitis suppurative); Negative HTN or Hypercholesterolemia
ED Past Surgical History: Gynecological (Hysterectomy 09/23/24)
Social History
Tobacco: Non-smoker
Alcohol: Occasional
Drug: None
Personal:
Living: with family
Employment: Employed
Family History
Family History: Hypertension
Review of Systems
Review of Systems
Allergies reviewed?: Yes
All Other Systems: ROS reviewed and negative except as documented in HPI and ROS
Constitutional: Denies fever or chills
Respiratory: Denies trouble breathing
Cardiac: Denies chest pain
ABD/GI: Denies abdominal pain, nausea, vomiting or diarrhea
: Denies dysuria, frequency, flank pain, difficulty voiding or urgency
Musculoskeletal: Reports back pain (right lower back pain past 3 days)
Skin: Reports other (abscess right labia)
Neurological: Reports no symptoms
Phy Exam
Physical Exam
Physical Exam:
GENERAL: No acute distress. A&Ox3.
CONSTITUTIONAL: Afebrile.
EYES: clear, conjunctivae normal
ENMT: moist mucus membranes, Pharynx nl
RESPIRATORY: Regular respirations, nonlabored, lungs clear.
CARDIOVASCULAR: Regular rate and rhythm, no murmurs, no rubs.
GI: Soft, nontender, normal BS
: Rt labial abscess with surrounding redness to about 5 cm out. Fluctuant, starting to drain
MUSCULOSKELETAL: Moves with ease. Well perfused.
SKIN: Warm, dry, pink
PSYCH: Normal mood and affect. Well kept, interactive and appropriate
NEUROLOGIC: Awake, alert and oriented. No focal neurological deficits
Course
Orders/Labs/Results
Orders:
Orders
10/14/24 10:06
Complete Blood Count/With Diff Urgent
10/14/24 10:33
Urinalysis Reflex To Culture Urgent
Date Specimen was Collected: 10/14/24
Time Specimen was Collected: 10:31
Urine Microscopic Reflex Cult Urgent
Urine Culture Urgent
MALATHI Source: U
Specimen Description:
Date Specimen was Collected: 10/14/24
Time Specimen was Collected: 10:31
10/14/24 10:38
Comprehensive Metabolic Panel Urgent
10/14/24 11:17
Midazolam HCl [Versed] 2 mg .ROUTE .STK-MED ONE
10/14/24 12:41
Midazolam HCl [Versed] 2 mg IV NOW STA
10/14/24 12:42
Midazolam HCl [Versed] 5 mg .ROUTE .STK-MED ONE
10/14/24 13:21
Wound Culture [Wound/Abscess/Other Culture] Urgent
MALATHI Source: Abscess
Specimen Description:
Date Specimen was Collected: 10/14/24
Time Specimen was Collected: 13:16
Abnormal Lab Results
10/14/24 10/14/24
10:06 10:33
WBC 11.6 H 10^3/uL
(4.8-10.8)
Abs Immat Gran (auto) 0.1 H 10^3/uL
(0-0.05)
Absolute Neuts (auto) 8.9 H 10^3/uL
(1.4-6.5)
Neutrophils % 76.6 H %
(42.2-75.2)
Lymphocytes % 15.2 L %
(20.5-51.1)
Urine Ketones 1+ A
(Negative)
Ur Occult Blood Reflex 1+ A
(Negative)
Leukocyte Esterase Rfl 1+ A
(Negative)
Urine RBC 3-6 A /HPF
(0-2)
Urine Bacteria (Reflex) Moderate A
(Negative)
Urine Albumin (Reflex) 2+ A
(Neg - Trace)
10/14/24 10:06
Vital Signs
Initial and Last Documented VS:
Initial Vital Signs
Temp Pulse Resp BP Pulse Ox
99.0 F 110 18 147/106 100
10/14/24 09:21 10/14/24 09:21 10/14/24 09:21 10/14/24 09:21 10/14/24 09:21
Last Documented Vital Signs
Temp Pulse Resp BP Pulse Ox
98.5 F 100 10 119/77 99
10/14/24 13:44 10/14/24 13:15 10/14/24 13:15 10/14/24 13:07 10/14/24 13:15
Procedures
Incision/Drainage/Joint Aspiration
right labia majora:
Anethesia: 1% Lidocaine with Epi
Preparation: cleaned with alcohol wipe
Type of procedure: incise and drain
Nature of site: abscess
Description of abscess: less than 3cm and involved incision
How much fluid was obtained?: large amount
Fluid description: purulent and foul smelling
Treatment: packed with gauze and antibiotics started
MDM/Problems Addressed
MDM/Problems Addressed:
49 yo female w h/o hidradenitis suppurativa, presents with abscess right labia/inguinal area getting worse over past 3 days.
Had hysterectomy 09/23/24 and has been alternating Tylenol and Ibuprofen for pain and still had temp of 99.0. Denies chills, nausea. 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 2 days ago and given Bactroban she has been applying.
Also some right lower back pain past few days. Denies urgency, frequency or burning w urination.
CBC with no clinically significant abnormality
Unable to get CMP, order canceled, result would not change treatment
1:10 PM:
After Versed IV 2 mg, local anesthetic, patient tolerated procedure well
Pt ambulated out with normal gait at discharge
*Critical Care Note
Total Time (30-74mins, 75-104mins- exclusive of procedures): Not Applicable
ED Attending Note
-
Portions of this chart may have been created with voice recognition software.� Occasional wrong word or��sound alike� substitutions may have occurred due to the inherent limitations of voice recognition software.
Discharge Plan
Departure
Patient Disposition: Home (Routine Discharge)
Date of Disposition: 10/14/24
Time of Disposition: 13:11
Patient with high blood pressure during this ER visit?: No
Condition: Good
Discharge Problem:
Abscess of labia majora
Instructions: Abscess incision and drainage - ED discharge instructions, Skin Abscess
Prescriptions:
New
doxycycline hyclate 100 mg capsule
100 mg PO BID Qty: 14 0RF
No Action
albuterol sulfate 18 GM HFA aerosol inhaler
8.5 gm inhalation Q4HPRN PRN (Reason: cough/sob)
fluticasone propionate [Flovent HFA] 1 PUFF HFA aerosol inhaler
2 puff inhalation R BID
Patient Comments:
Patient unsure of dose.
lactobacillus bifidus [Rawbf-[id number]] 1 CAP capsule
1 cap PO DAILY Qty: 30 0RF
pantoprazole 40 MG tablet,delayed release (DR/EC)
40 mg PO DAILY Qty: 15 0RF
ondansetron HCl 4 MG tablet
4 mg PO [id number] PRN (Reason: before antibiotics if nausea) Qty: 28 0RF
amoxicillin-pot clavulanate 1 TABLET tablet
1 tab PO Q12 Qty: 28 0RF
erythromycin 5 mg/gram (0.5 %) ointment
1 applic ophthalmic (eye) Q8H PRN (Reason: eye pain, swekking) Qty: 50 0RF
pantoprazole [Protonix] 20 mg tablet,delayed release (DR/EC)
20 mg PO BID Qty: 30 0RF
sucralfate [Carafate] 100 mg/mL suspension
10 ml PO ACHS Qty: 1000 0RF
Referrals:
Theo Jensen Jr., DO [Family Provider] - As needed
Activity Restrictions/Additional Instructions:
As we discussed, warm water from shower over the area as much as you can for 5 minutes up to 3 times a day for 2 days.
I sent a prescription to your pharmacy for antibiotic Doxycycline to take twice a day for 7 days.
Tylenol or Ibuprofen as needed for pain
If the packing has not fallen out by 3 days, remove it.
Seek medical care immediately for fever, chills, vomiting, increasing pain or swelling or redness or feeling sicker in any way.
Interventions
Interventions:
*Risk Screen - Suicide Last Done: 10/14/24 09:21
*General Assessment Last Done: 10/14/24 09:21
*Neglect/Abuse Screening Last Done: 10/14/24 09:21
*ED- Fall Risk Assessment Last Done: 10/14/24 09:21
*ED COVID-19 Vaccine History Last Done: 10/14/24 09:21
*Nursing Disposition Last Done: 10/14/24 13:44
ED-Skin Assessment Last Done: 10/14/24 13:44
Discharge Date and Time
Discharge Date/Time: 10/14/24 13:44
Print Language: GREEK
[2024-10-14 10:18] LABS: % Basophils 0.3 % (0-2); % Immature Granulocytes 0.4 % (0-0.5); % Lymphocytes 15.2 % (20.5-51.1); % Monocytes 5.5 % (1.7-9.3); % Neutrophils 76.6 % (42.2-75.2); Absolute Eosinophils 0.2 10^3/uL (0-0.7); Absolute Immature Granulocytes 0.1 10^3/uL (0-0.05); Absolute Lymphocytes 1.8 10^3/uL (1.2-3.4); Absolute Monocytes 0.6 10^3/uL (0.1-0.6); Absolute Neutrophils 8.9 10^3/uL (1.4-6.5); Hematocrit 37.6 % (37.0-47.0); Hemoglobin 13.1 g/dL (12.0-16.0); Mean Corp Hgb Conc. 34.8 g/dL (33.0-37.0); Mean Corpuscular Hgb 29.9 pg (27.0-31.0); Mean Corpuscular Volume 85.8 fL (81.0-99.0); Mean Platelet Volume 9.5 fL (7.4-10.4); Nucleated Red Blood Cells % 0 %; Platelet Count 320 10^3/uL (130-400); Red Blood Cell Count 4.38 10^6/uL (4.20-5.40); Red Cell Dist. Width 12.4 % (11.5-14.5); White Blood Cell Count 11.6 10^3/uL (4.8-10.8)
[2024-10-14 10:43] LABS: Urine Albumin 2+ (Neg - Trace); Urine Bilirubin Negative (Negative); Urine Character Clear (Clear); Urine Color Yellow; Urine Glucose Negative (Negative); Urine Ketone 1+ (Negative); Urine Leukocyte 1+ (Negative); Urine Nitrite Negative (Negative); Urine Occult Blood 1+ (Negative); Urine Specific Gravity 1.025 (<1.030); Urine Urobilinogen Negative (Neg - 1+)
[2024-10-14 11:01] LABS: Urine Mucus Many; Urine Squamous Cell >30 /LPF (Few)
[2024-10-14 11:03] LABS: Urine Bacteria Moderate (Negative)
[2024-10-14 11:24] VITALS: BP 140/76
[2024-10-14 12:40] VITALS: BP 135/91
[2024-10-14] MEDS: VERSED 2 MG IV (12:41)
[2024-10-14 13:00] VITALS: BP 133/102
[2024-10-14 13:07] VITALS: BP 119/77
== END 2024-10-14 13:44 | disposition home or self-care (01) ==
LOC: EMR 09:19
PROVIDERS: Registered Nurse; EMERGENCY PHYSICIAN Student in an Organized Health Care Education/Training Program; FAMILY PHYSICIAN Family Medicine
DX: N76.4 Abscess of vulva (principal); I47.10 Supraventricular tachycardia, unspecified; Z90.710 Acquired absence of both cervix and uterus
CPT/HCPCS: 99283; 10060; 81003; 81015; 85025; 87070; 87077; 87086; 87205

== ENCOUNTER 2024-10-30 19:45 | Emergency (ER) | payer OTHER, SELFPAY ==
[2024-10-30 19:48] VITALS: BP 118/89
--- NOTE | 2024-10-30 22:40 | ED.GENMED ---
History of Present Illness
General
Chief Complaint: Skin Problem
Source: patient
Exam Limitations: none
Time Seen by Provider: 10/30/24 22:26
History of Present Illness
History of Present Illness:
49yoF with a history of hidradenitis suppurativa presenting for evaluation of a right groin boil x 2.5 weeks. Patient was last seen in the ED on 10/14/2024 for an abscess of the labia which she had drained. Wound cultures were sent and she was
started on a course of doxycycline. Wound culture came back resistant to doxycycline so her PCP to switch her to a 10-day course of Augmentin which she finished 3 days ago. Patient states that abscess has resolved but she now has a new boil in her
groin which is becoming increasingly painful. She denies any fevers or chills.
Past History
Past History
ED Past Medical History: Arrthythmia ( SVT), Psychiatric and Other (Hidradenitis suppurative); Negative HTN or Hypercholesterolemia
ED Past Surgical History: Gynecological (Hysterectomy 09/23/24)
Social History
Tobacco: Non-smoker
Alcohol: Occasional
Drug: None
Personal:
Living: with family
Employment: Employed
Family History
Family History: Hypertension
Phy Exam
General Physical Exam
General Presentation: well appearing and no apparent distress
General age: appears stated age
General Skin: warm and dry
General Habitus: normal
General Mental: alert
ENT Exam
ENT Exam: normocephalic
Pulmonary Exam
Pulmonary Exam: no respiratory distress
Neurological Exam
Neurological Exam: alert
May Coma Scale
Eye Opening: Spontaneous
Verbal Response: Oriented
Motor Response: Obeys Commands
GCS Total Score: 15
Skin Exam
Skin Exam: other (There is a 4cm area of swelling/fluctuance present to the R inguinal area consistent with an abscess. There is a small area of surrounding erythema. No crepitus, pain out of proportion, or perineal involvement. )
Psychiatric Exam
Psychiatric Exam: normal mood/affect
Course
Orders/Labs/Results
Orders:
Orders
10/30/24 22:39
Ketorolac [Toradol] 15 mg IV NOW STA
Midazolam HCl [Versed] 5 mg IV NOW STA
10/30/24 23:05
Complete Blood Count/With Diff Urgent
Comprehensive Metabolic Panel Urgent
10/30/24 23:54
Cefdinir [Omnicef] 300 mg PO NOW STA
10/30/24 23:57
Wound Culture [Wound/Abscess/Other Culture] Urgent
MALATHI Source: Abscess
Specimen Description:
Date Specimen was Collected: 10/30/24
Time Specimen was Collected: 23:56
Comment: R krishan
Abnormal Lab Results
10/30/24
23:05
WBC 11.7 H 10^3/uL
(4.8-10.8)
RBC 4.19 L 10^6/uL
(4.20-5.40)
Hct 36.8 L %
(37.0-47.0)
Absolute Neuts (auto) 8.5 H 10^3/uL
(1.4-6.5)
Lymphocytes % 19.7 L %
(20.5-51.1)
Glucose 108 H mg/dl
(70-99)
10/30/24 23:05
10/30/24 23:05
Vital Signs
Initial and Last Documented VS:
Initial Vital Signs
Temp Pulse Resp BP Pulse Ox
98.7 F 108 18 118/89 98
10/30/24 19:48 10/30/24 19:48 10/30/24 19:48 10/30/24 19:48 10/30/24 19:48
Last Documented Vital Signs
Temp Pulse Resp BP Pulse Ox
98.7 F 75 18 138/84 100
10/30/24 19:48 10/31/24 00:24 10/31/24 00:24 10/31/24 00:24 10/31/24 00:24
Procedures
Incision/Drainage/Joint Aspiration
Right Groin:
Anethesia: 1% Lidocaine
Preparation: cleaned with Betadine
Type of procedure: incise and drain
Nature of site: abscess
Description of abscess: greater than 3cm
How much fluid was obtained?: large amount
Fluid description: purulent
Treatment: left open for drainage, antibiotics started and bandaid applied
MDM/Problems Addressed
Differential Diagnosis Includes:
49yoF here with a boil to her R groin x 2 weeks that is worsening. Hx of hidradenitis. Denies fevers. Temp 98.7 on arrival. She is nontoxic-appearing. There is fluctuance on exam with a small area of surrounding cellulitis. No crepitus, pain out
of proportion, bullae, or perineal involvement to suggest NSTI.
Initial ED plan: Check CBC and CMP. Will perform I&D.
*Critical Care Note
Total Time (30-74mins, 75-104mins- exclusive of procedures): Not Applicable
Update Note
Update Note:
Labs reveal a mild leukocytosis with with a white count of 11.7 which is similar to prior labs 2 weeks ago. I&D performed as above with return of a large amount of purulence. IV Versed given per patient request for anxiolysis. Patient tolerated
procedure well and pain improved after drainage. No indication for hospitalization at this time. She was started on a course of cefdinir based on prior wound culture results. Wound culture today also sent. She was advised to follow-up closely
with her PCP and strict ED return precautions discussed. Patient in agreement with plan and was discharged in stable condition.
ED Attending Note
-
Portions of this chart may have been created with voice recognition software.� Occasional wrong word or��sound alike� substitutions may have occurred due to the inherent limitations of voice recognition software.
Discharge Plan
Departure
Patient Disposition: Home (Routine Discharge)
Date of Disposition: 10/30/24
Time of Disposition: 23:55
Patient with high blood pressure during this ER visit?: No
Discharge Problem:
Abscess of right groin
Instructions: Skin Abscess
Prescriptions:
New
cefdinir 300 mg capsule
300 mg PO BID Qty: 13 0RF
No Action
albuterol sulfate 18 GM HFA aerosol inhaler
8.5 gm inhalation Q4HPRN PRN (Reason: cough/sob)
fluticasone propionate [Flovent HFA] 1 PUFF HFA aerosol inhaler
2 puff inhalation R BID
Patient Comments:
Patient unsure of dose.
lactobacillus bifidus [[id number]] 1 CAP capsule
1 cap PO DAILY Qty: 30 0RF
pantoprazole 40 MG tablet,delayed release (DR/EC)
40 mg PO DAILY Qty: 15 0RF
ondansetron HCl 4 MG tablet
4 mg PO [id number] PRN (Reason: before antibiotics if nausea) Qty: 28 0RF
amoxicillin-pot clavulanate 1 TABLET tablet
1 tab PO Q12 Qty: 28 0RF
erythromycin 5 mg/gram (0.5 %) ointment
1 applic ophthalmic (eye) Q8H PRN (Reason: eye pain, swekking) Qty: 50 0RF
pantoprazole [Protonix] 20 mg tablet,delayed release (DR/EC)
20 mg PO BID Qty: 30 0RF
sucralfate [Carafate] 100 mg/mL suspension
10 ml PO ACHS Qty: 1000 0RF
doxycycline hyclate 100 mg capsule
100 mg PO BID Qty: 14 0RF
Activity Restrictions/Additional Instructions:
Take antibiotics as prescribed. Apply warm compresses 4-6 times daily.
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 Return to the ER with any new or worsening symptoms including fevers.
Interventions
Interventions:
*Risk Screen - Suicide Last Done: 10/30/24 19:48
*General Assessment Last Done: 10/30/24 19:48
*Neglect/Abuse Screening Last Done: 10/30/24 19:48
*ED- Fall Risk Assessment Last Done: 10/31/24 00:24
*ED COVID-19 Vaccine History Last Done: 10/30/24 19:48
*Nursing Disposition Last Done: 10/31/24 00:25
ED-Skin Assessment Last Done: 10/30/24 23:30
Discharge Date and Time
Discharge Date/Time: 10/31/24 00:25
Print Language: ARMENIAN
[2024-10-30] MEDS: TORADOL 15 MG IV (23:06)
[2024-10-30 23:14] LABS: % Basophils 0.4 % (0-2); % Eosinophils 1.8 % (0-6); % Immature Granulocytes 0.3 % (0-0.5); % Lymphocytes 19.7 % (20.5-51.1); % Monocytes 4.9 % (1.7-9.3); % Neutrophils 72.9 % (42.2-75.2); Absolute Basophils 0.1 10^3/uL (0-0.2); Absolute Eosinophils 0.2 10^3/uL (0-0.7); Absolute Lymphocytes 2.3 10^3/uL (1.2-3.4); Absolute Monocytes 0.6 10^3/uL (0.1-0.6); Absolute Neutrophils 8.5 10^3/uL (1.4-6.5); Hematocrit 36.8 % (37.0-47.0); Hemoglobin 12.4 g/dL (12.0-16.0); Mean Corp Hgb Conc. 33.7 g/dL (33.0-37.0); Mean Corpuscular Hgb 29.6 pg (27.0-31.0); Mean Corpuscular Volume 87.8 fL (81.0-99.0); Mean Platelet Volume 9.5 fL (7.4-10.4); Nucleated Red Blood Cells % 0 %; Platelet Count 325 10^3/uL (130-400); Red Blood Cell Count 4.19 10^6/uL (4.20-5.40); Red Cell Dist. Width 12.6 % (11.5-14.5); White Blood Cell Count 11.7 10^3/uL (4.8-10.8)
[2024-10-30 23:29] LABS: ALT (SGPT) 10 U/L (0-35); AST (SGOT) 18 U/L (14-36); Albumin 4.2 g/dl (3.5-5.0); Alkaline Phosphatase 91 U/L (38-126); Blood Urea Nitrogen 12 mg/dl (7-17); Calcium 9.6 mg/dl (8.4-10.2); Carbon Dioxide 27 mmol/L (22-30); Chloride 104 mmol/L (98-107); Glucose 108 mg/dl (70-99); Potassium 3.7 mmol/L (3.5-5.1); Sodium 139 mmol/L (135-145); Total Bilirubin 1.2 mg/dl (0.2-1.3); Total Protein 6.9 g/dl (6.3-8.2); eGFR > 60.00
[2024-10-30] MEDS: VERSED 5 MG IV (23:30)
[2024-10-31 00:24] VITALS: BP 138/84
[2024-10-31] MEDS: OMNICEF 300 MG PO (00:24)
== END 2024-10-31 00:25 | disposition home or self-care (01) ==
LOC: EMR 19:45
PROVIDERS: Physician Assistant; EMERGENCY PHYSICIAN Emergency Medicine
DX: L02.214 Cutaneous abscess of groin (principal); Z90.710 Acquired absence of both cervix and uterus
CPT/HCPCS: 10060; 96374; 96375; 99284; 80053; 85025; 87070; 87071; 87205

== ENCOUNTER 2024-11-04 17:42 | Emergency (ER) | payer OTHER, SELFPAY ==
[2024-11-04 17:44] VITALS: BP 118/81
--- NOTE | 2024-11-04 21:42 | ED.GENMED ---
History of Present Illness
General
Chief Complaint: Abnormal Lab Value
Source: patient
Exam Limitations: none
Time Seen by Provider: 11/04/24 19:36
Nursing documentation reviewed up to this point in time: agreed with
History of Present Illness
History of Present Illness:
Patient is a 49-year-old female who presents back to the ER for evaluation. Patient has hidradenitis suppurativa and was here October 30 several days ago for an abscess to the right groin. She had an incision and drainage and was started on
cefdinir. Prior to that she had an abscess in the right labia and was on 2 different antibiotics because of culture sensitivity.
Patient reports that she called the ER today to check on the bacteria and was told that she needed IV antibiotics. She denies any fevers and does report that the wound seems to be healing.
Past History
Past History
ED Past Medical History: Arrthythmia ( SVT), Psychiatric and Other (Hidradenitis suppurative); Negative HTN or Hypercholesterolemia
ED Past Surgical History: Gynecological (Hysterectomy 09/23/24)
Social History
Tobacco: Non-smoker
Alcohol: Occasional
Drug: None
Personal:
Living: with family
Employment: Employed
Family History
Family History: Hypertension
Review of Systems
Review of Systems
Allergies reviewed?: Yes
All Other Systems: ROS reviewed and negative except as documented in HPI and ROS
Constitutional: Reports no symptoms; Denies fever, fatigue or chills
Cardiac: Reports no symptoms
ABD/GI: Reports no symptoms
: Reports no symptoms
Skin: Reports other (healing abscess to right groin )
Psychiatric: Reports no symptoms
Phy Exam
General Physical Exam
General Presentation: no apparent distress
General age: appears stated age
General Skin: warm and dry
General Habitus: normal
General Mental: alert
General Hydration: appears well hydrated
Neurological Exam
Neurological Exam: alert and oriented x3
Musculoskeletal Exam
Musculoskeletal Exam: full ROM
Skin Exam
Skin Exam: normal color, warm/dry and other (healing abscess to right groin no flucutance no surrounding erythema or red streaking)
Course
Orders/Labs/Results
Orders:
Orders
11/04/24 22:58
Amoxicillin [Amoxil] 500 mg PO NOW STA
Vital Signs
Initial and Last Documented VS:
Initial Vital Signs
Temp Pulse Resp BP Pulse Ox
99.5 F 103 18 118/81 99
11/04/24 17:44 11/04/24 17:44 11/04/24 17:44 11/04/24 17:44 11/04/24 17:44
Last Documented Vital Signs
Temp Pulse Resp BP Pulse Ox
99.5 F 83 16 127/74 97
11/04/24 17:44 11/04/24 23:07 11/04/24 23:07 11/04/24 23:07 11/04/24 23:07
Brim Stiffener consulted with Physician
Brim Stiffener consulted with physician?: Yes
Name of Physician Consulted: Melissa
MDM/Problems Addressed
MDM/Problems Addressed:
On patient is a 49-year-old female with hidradenitis suppurativa recently seen in the ER and had a right groin abscess drained. She reports it is healing very well however she was told when she called to the ER that the antibiotics were not cover
the infection. I did review micro report with ED physician abscesses bacteria includes Proteus Mirabilis and Enterococcus faecalis. Micro report reviewed; cefdinir would cover the Proteus and ampicillin is listed as covering Enterococcus.
Case was reviewed with infectious disease Dr. Rich he would add amoxicillin and have patient continue cefdinir.
Patient is nontoxic denies any fever chills and abscess is improving.
discussed close outpatient follow-up with family doctor.
*Pulse Oximetry
Patient hypoxic: no
*Critical Care Note
Total Time (30-74mins, 75-104mins- exclusive of procedures): Not Applicable
Data Reviewed
Review of Other/Old Records Reveals: Labs and Other (prior ED visits )
ED Attending Note
-
Portions of this chart may have been created with voice recognition software.� Occasional wrong word or��sound alike� substitutions may have occurred due to the inherent limitations of voice recognition software.
Discharge Plan
Departure
Patient Disposition: Home (Routine Discharge)
Date of Disposition: 11/04/24
Time of Disposition: 22:59
Patient with high blood pressure during this ER visit?: No
Condition: Fair
Covid-19: Not Applicable
Discharge Problem:
Abscess
Instructions: Boil, Adult ED
Prescriptions:
New
amoxicillin 500 mg capsule
500 mg PO Q8H Qty: 30 0RF
No Action
albuterol sulfate 18 GM HFA aerosol inhaler
8.5 gm inhalation Q4HPRN PRN (Reason: cough/sob)
fluticasone propionate [Flovent HFA] 1 PUFF HFA aerosol inhaler
2 puff inhalation R BID
Patient Comments:
Patient unsure of dose.
lactobacillus bifidus [[id number]] 1 CAP capsule
1 cap PO DAILY Qty: 30 0RF
pantoprazole 40 MG tablet,delayed release (DR/EC)
40 mg PO DAILY Qty: 15 0RF
ondansetron HCl 4 MG tablet
4 mg PO [id number] PRN (Reason: before antibiotics if nausea) Qty: 28 0RF
amoxicillin-pot clavulanate 1 TABLET tablet
1 tab PO Q12 Qty: 28 0RF
erythromycin 5 mg/gram (0.5 %) ointment
1 applic ophthalmic (eye) Q8H PRN (Reason: eye pain, swekking) Qty: 50 0RF
pantoprazole [Protonix] 20 mg tablet,delayed release (DR/EC)
20 mg PO BID Qty: 30 0RF
sucralfate [Carafate] 100 mg/mL suspension
10 ml PO ACHS Qty: 1000 0RF
doxycycline hyclate 100 mg capsule
100 mg PO BID Qty: 14 0RF
cefdinir 300 mg capsule
300 mg PO BID Qty: 13 0RF
Referrals:
Theo Jensen Jr., DO [Family Provider] -
Activity Restrictions/Additional Instructions:
As discussed please complete cefdinir. In addition you will be started on a new medication called amoxicillin. You were given the first dose here in the ER and the prescription was sent to pharmacy to take for the next 10 days. Follow-up with
your family doctor in the next 2 days for reevaluation. Return if any worsening of symptoms.
Interventions
Interventions:
*Risk Screen - Suicide Last Done: 11/04/24 17:44
*General Assessment Last Done: 11/04/24 17:44
*Neglect/Abuse Screening Last Done: 11/04/24 17:44
*ED- Fall Risk Assessment Last Done: 11/04/24 20:38
*ED COVID-19 Vaccine History Last Done: 11/04/24 17:44
*Nursing Disposition Last Done: 11/04/24 23:08
Discharge Date and Time
Discharge Date/Time: 11/04/24 23:08
Print Language: [id number]
[2024-11-04] MEDS: AMOXIL 500 MG PO (23:05)
[2024-11-04 23:07] VITALS: BP 127/74
== END 2024-11-04 23:08 | disposition home or self-care (01) ==
LOC: EMR 17:42
PROVIDERS: EMERGENCY PHYSICIAN Emergency Medicine; FAMILY PHYSICIAN Family Medicine
DX: L02.214 Cutaneous abscess of groin (principal); L73.2 Hidradenitis suppurativa; Z16.29 Resistance to other single specified antibiotic
CPT/HCPCS: 99283